=== PATIENT | female | born 1990 | race Caucasian/White ===

== ENCOUNTER 2021-01-23 03:29 | Inpatient (IN) | payer BC ==
[2021-01-23] MEDS: Lactated Ringer's 1,000 ML IV SCH ×2 (03:58→07:08)
[2021-01-23 04:06] VITALS: BMI 30.7
[2021-01-23] MEDS ORDERED: HYDROcodone/Acetaminophen 5/325 mg Tablet PO PRN ×4 (04:15→20:20)
[2021-01-23] MEDS ORDERED: Ondansetron PF 4 MG/2 ML Vial IVP PRN ×2 (04:15→06:46)
[2021-01-23] MEDS ORDERED: Diphenoxylate HCl/Atropine Tablet PO PRN ×2 (04:15)
[2021-01-23] MEDS ORDERED: Acetaminophen 500 MG TAB PO PRN (04:15)
[2021-01-23] MEDS ORDERED: Lactated Ringer's 1,000 ML IV SCH (04:15)
[2021-01-23] MEDS ORDERED: Promethazine HCl 25 MG/ML VIAL IM PRN ×2 (04:15→06:46)
[2021-01-23] MEDS ORDERED: Carboprost 250 MCG/ML AMP IM PRN (04:15)
[2021-01-23] MEDS ORDERED: NS w/ Oxytocin 30 units 500 ML IVPB SCH (04:15)
[2021-01-23] MEDS ORDERED: Lidocaine 1% (PF) 30 ML VIAL SC PRN (04:15)
[2021-01-23] MEDS ORDERED: Butorphanol Tartrate 1 MG/ML VIAL SLOW IVP PRN (04:15)
[2021-01-23] MEDS ORDERED: Misoprostol 200 MCG TAB RC PRN (04:15)
[2021-01-23] MEDS ORDERED: NS w/ Oxytocin 30 units 500 ML IV SCH ×3 (04:15→12:23)
[2021-01-23] MEDS ORDERED: Methylergonovine 0.2 MG/ML VIAL IM PRN ×2 (04:15→12:23)
[2021-01-23] MEDS ORDERED: Ibuprofen 800 MG TAB PO PRN (04:15)
[2021-01-23 04:23] LABS: Hemoglobin 13.7 g/dL (12.0-15.5); Mean Corpuscular HGB CONC 34.3 g/dL (32.0-36.0); Mean Corpuscular Hemoglobin 32.4 pg (27.0-33.0); Mean Corpuscular Volume 94.3 fl (81.6-98.3); Mean Platelet Volume 10.5 fl (7.4-10.4); Platelet Count 159 10x3/uL (150-450); RBC Distribution Width 13.3 % (11.5-14.5); Red Blood Cell (RBC) Count 4.23 10x6/uL (3.90-5.03); White Blood Cell (WBC) Count 12.3 10x3/uL (3.5-10.5)
[2021-01-23 05:05] LABS: SARS-CoV-2 NAA Rapid Test Not Detected (NotDetected)
[2021-01-23 05:29] LABS: Hep B Surf Ag Non-Reactive S/CO (NonReactive); Syphilis Antibody Nonreactive (Nonreactive); Syphilis Antibody Index 0.04 S/CO (<1.00 Non-Reactive)
[2021-01-23] MEDS ORDERED: Fentanyl 2 mcg/Bup 0.1% Cadd 100 ML ONE (05:57)
[2021-01-23] MEDS ORDERED: Hydrocerin (Eucerin) Cream 120 gm Jar TOP PRN (06:46)
[2021-01-23] MEDS ORDERED: Lactated Ringer's 500 ML IV PRN (06:46)
[2021-01-23] MEDS ORDERED: diphenhydrAMINE 50 MG/ML VIAL IVP PRN (06:46)
[2021-01-23] MEDS ORDERED: Naloxone HCl 0.4 mg/ml Vial IVP PRN ×2 (06:46)
[2021-01-23] MEDS ORDERED: Acetaminophen 325 MG TAB PO PRN (06:46)
[2021-01-23] MEDS ORDERED: ePHEDrine Sulfate 50 MG/10 ML VIAL SLOW IVP PRN (06:46)
[2021-01-23] MEDS ORDERED: Communication Order-Pharmacy FS PRN (07:00)
[2021-01-23] MEDS ORDERED: Fentanyl 2 mcg/Bupivacaine 0.1% Cassette 100 ML EPIDURAL SCH (07:00)
[2021-01-23] MEDS ORDERED: Benzocaine-Menthol 82.5 ML CAN TOP PRN (12:23)
[2021-01-23] MEDS ORDERED: Lanolin Ointment 7 GM TUBE TOP PRN (12:23)
[2021-01-23] MEDS ORDERED: Bisacodyl 10 MG SUPP PR PRN (12:23)
[2021-01-23] MEDS ORDERED: Milk Of Magnesia 30 ML UDCUP PO PRN (12:23)
[2021-01-23] MEDS ORDERED: Boostrix 0.5 ML (Tdap) VIAL IM ONE (12:23)
[2021-01-23] MEDS ORDERED: hydrALAZINE 20 MG/ML VIAL SLOW IVP PRN (12:23)
[2021-01-23] MEDS ORDERED: Misoprostol 200 MCG TAB VAG PRN (12:23)
[2021-01-23] MEDS ORDERED: Ferrous Sulfate 325 MG TAB PO SCH (12:30)
[2021-01-23] MEDS ORDERED: Prenatal Vitamin 1 TAB PO SCH (12:45)
[2021-01-23] MEDS ORDERED: Docusate Calcium (SURFAK) 240 MG CAP PO SCH (12:45)
[2021-01-23] MEDS: Ibuprofen 800 MG TAB PO SCH ×2 (14:47→21:58)
[2021-01-23] MEDS: Ferrous Sulfate 325 MG TAB PO SCH (16:53)
[2021-01-23] MEDS: Docusate Calcium (SURFAK) 240 MG CAP PO SCH (21:33)
[2021-01-24] MEDS: Ibuprofen 800 MG TAB PO SCH (07:02)
[2021-01-24] MEDS: Ferrous Sulfate 325 MG TAB PO SCH (07:34)
[2021-01-24 07:53] VITALS: BP 102/53; TEMP 97.9
[2021-01-24] MEDS: Docusate Calcium (SURFAK) 240 MG CAP PO SCH (08:41)
[2021-01-24] MEDS ORDERED: Prenatal Vitamin 1 TAB PO SCH (09:00)
== END 2021-01-24 13:40 | disposition home or self-care (01) | DRG 807 ==
LOC: CSHLD/OP 03:29 → CSHLD 04:52 → CSHPP 13:20
PROVIDERS: ADMIT Obstetrics & Gynecology; ATTEND Obstetrics & Gynecology
PROC: 10E0XZZ Delivery of Products of Conception, External Approach (ICD-10-PCS; principal; 2021-01-23)
DX: O69.1XX0 Labor and delivery complicated by cord around neck, with compression, not applicable or unspecified (principal); Z37.0 Single live birth; Z3A.40 40 weeks gestation of pregnancy
CPT/HCPCS: 36415; 85027; 86780; 86850; 86900; 86901; 87340; J2590; J7120; U0002

== ENCOUNTER 2023-01-31 14:30 | Inpatient (IN) | payer OTHER ==
[2023-01-31] MEDS ORDERED: Lidocaine 1% (PF) 30 ML VIAL SC PRN (14:51)
[2023-01-31] MEDS ORDERED: Ibuprofen 800 MG TAB PO PRN (14:51)
[2023-01-31] MEDS ORDERED: Ondansetron PF 4 MG/2 ML Vial IVP PRN ×2 (14:51→15:54)
[2023-01-31] MEDS ORDERED: Misoprostol 200 MCG TAB PR PRN (14:51)
[2023-01-31] MEDS ORDERED: fentaNYL 50 mcg/mL 1 mL Vial SLOW IVP PRN (14:51)
[2023-01-31] MEDS ORDERED: Promethazine HCl 25 MG/ML VIAL IM PRN ×2 (14:51→15:54)
[2023-01-31] MEDS ORDERED: hydrALAZINE 20 MG/ML VIAL SLOW IVP PRN ×2 (14:51→20:29)
[2023-01-31] MEDS ORDERED: HYDROcodone/Acetaminophen 5/325 mg Tablet PO PRN ×4 (14:51→20:29)
[2023-01-31] MEDS ORDERED: Lactated Ringer's 1,000 ML IV SCH (15:00)
[2023-01-31] MEDS ORDERED: Oxytocin 30 units/NS 500 ML 500 ML IV SCH ×2 (15:00→20:29)
[2023-01-31] MEDS ORDERED: fentaNYL/Ropivacaine Epidural 100 ML ONE (15:08)
[2023-01-31 15:15] LABS: Hematocrit 40.6 % (34.9-44.5); Hemoglobin 13.8 g/dL (12.0-15.5); Mean Corpuscular Hemoglobin 32.5 pg (27.0-33.0); Mean Corpuscular Volume 95.8 fl (81.6-98.3); Mean Platelet Volume 10.2 fl (7.4-10.4); Platelet Count 177 10x3/uL (150-450); RBC Distribution Width 13.4 % (11.5-14.5); Red Blood Cell (RBC) Count 4.24 10x6/uL (3.90-5.03); White Blood Cell (WBC) Count 11.7 10x3/uL (3.5-10.5)
[2023-01-31 15:34] VITALS: BMI 29.8
[2023-01-31 15:43] LABS: Syphilis Antibody Nonreactive (Nonreactive); Syphilis Antibody Index 0.07 S/CO (<1.00 Non-Reactive)
[2023-01-31 15:44] LABS: HBSAg Index 0.22 S/CO (0-0.99); Hep B Surf Ag - L&D Non-Reactive S/CO (NonReactive)
[2023-01-31] MEDS ORDERED: Lactated Ringer's 500 ML IV PRN (15:54)
[2023-01-31] MEDS ORDERED: Acetaminophen 325 MG TAB PO PRN (15:54)
[2023-01-31] MEDS ORDERED: Moisturizing Cream (Eucerin) 113 GM JAR TOP PRN (15:54)
[2023-01-31] MEDS ORDERED: ePHEDrine Sulfate 50 MG/10 ML VIAL SLOW IVP PRN (15:54)
[2023-01-31] MEDS ORDERED: diphenhydrAMINE 50 MG/ML VIAL IVP PRN (15:54)
[2023-01-31] MEDS ORDERED: Naloxone HCl 0.4 mg/ml Vial IVP PRN ×2 (15:54)
[2023-01-31] MEDS ORDERED: fentaNYL 2 mcg/Ropivacaine 0.2% Epidural 100 ML CADD EPIDURAL SCH (16:00)
[2023-01-31] MEDS ORDERED: Communication Order-Pharmacy FS SCH (16:00)
[2023-01-31] MEDS ORDERED: Boostrix 0.5 ML (Tdap) VIAL (>/=7 yrs of age) IM ONE (20:29)
[2023-01-31] MEDS ORDERED: Milk Of Magnesia 30 ML UDCUP PO PRN (20:29)
[2023-01-31] MEDS ORDERED: Benzocaine-Menthol 82.5 ML CAN TOP PRN (20:29)
[2023-01-31] MEDS ORDERED: Misoprostol 200 MCG TAB VAG PRN (20:29)
[2023-01-31] MEDS ORDERED: Lanolin Ointment 7 GM TUBE TOP PRN (20:29)
[2023-01-31] MEDS ORDERED: Bisacodyl 10 MG SUPP PR PRN (20:29)
[2023-01-31] MEDS: Docusate 100 MG CAP PO SCH (21:20)
[2023-01-31] MEDS: Ibuprofen 800 MG TAB PO SCH (21:21)
[2023-02-01] MEDS: Ibuprofen 800 MG TAB PO SCH ×2 (05:44→15:01)
[2023-02-01] MEDS: Docusate 100 MG CAP PO SCH (08:28)
[2023-02-01] MEDS: Ferrous Sulfate 325 MG TAB PO SCH ×2 (08:28→16:13)
[2023-02-01] MEDS ORDERED: Prenatal Vitamin 1 TAB PO SCH (09:00)
[2023-02-01 16:20] VITALS: BP 101/59; TEMP 98.6
== END 2023-02-01 19:50 | disposition home or self-care (01) | DRG 807 ==
LOC: CSHLD/OP 14:30 → CSHLD 15:02 → CSHPP 20:09
PROVIDERS: ADMIT Obstetrics & Gynecology; ATTEND Obstetrics & Gynecology
PROC: 10E0XZZ Delivery of Products of Conception, External Approach (ICD-10-PCS; principal; 2023-01-31)
DX: O80 Encounter for full-term uncomplicated delivery (principal); Z37.0 Single live birth; Z3A.39 39 weeks gestation of pregnancy
CPT/HCPCS: 36415; 85027; 86780; 86850; 86900; 86901; 87340; J2590